=== PATIENT | male | born 1945 ===

== ENCOUNTER 2023-06-05 15:11 | Emergency (ER) | payer MEDICARE, BC, OTHER, SELFPAY ==
[2023-06-05 15:19] VITALS: BP 155/73
--- NOTE | 2023-06-05 17:43 | ED.GENMED ---
History of Present Illness
General
Chief Complaint: Visual Problem
Source: patient, spouse and physician (Records from his portrait painter office Dr. Medrano)
Exam Limitations: none
Time Seen by Provider: 06/05/23 17:41
Nursing documentation reviewed up to this point in time: agreed with
Travel History
Have you had any contact with someone who has COVID-19?: No
Do you have any symptoms of coronavirus? Fever > 100 degrees, chills, cough, shortness of breath, sore throat, loss of taste or smell, muscle aches, or headache?: No
History of Present Illness
History of Present Illness:
77-year-old male with history of HTN, CKD 2, diet-controlled diabetes, macular degeneration, dry eyes, wears glasses, left cataract surgery, right cataract extraction, laser capsulotomy of lens states for the past month he has been seeing binocular
vertical diplopia intermittently when looking afar for the past month. There has been no monocular diplopia. Denies recent trauma, it occurs when watching TV and reading subtitles, reading signs on the side of the road while driving. He has been
stable for the past month. There has been no facial droopiness or weakness.
He went to portrait painter Dr. Medrano today and referred here for evaluation of his binocular vertical diplopia. Told he needs an MRI.
Patient denies eye pain, fever, headache or photophobia.
Past History
Past History
ED Past Medical History: HTN
ED Past Surgical History: Orthopedic (R knee torn meniscus), Tonsilectomy (adenoidectomy) and Other (R & L cataract surgery, R inguinal hernia )
Social History
Tobacco: Smoker
Alcohol: Occasional
Personal:
Living: with family
Employment: Retired
Review of Systems
Review of Systems
Allergies reviewed?: Yes
All Other Systems: ROS reviewed and negative except as documented in HPI and ROS
Constitutional: Denies fever
Respiratory: Denies trouble breathing
Cardiac: Denies chest pain
ABD/GI: Denies abdominal pain
Skin: Reports no symptoms
Neurological: Reports other (Binocular vertical diplopia); Denies dizzy, headache, weakness or numbness
Phy Exam
Physical Exam
Physical Exam:
GENERAL: No acute distress. A&Ox3.
CONSTITUTIONAL: Afebrile.
Head: No scalp/temporal tenderness
EYES: PERRL, conjunctivae normal, EOMs intact. (see eye exam scanned into chart from portrait painter)
Neck: Supple
ENMT: moist mucus membranes, Pharynx nl, TMs normal
RESPIRATORY: Regular respirations, nonlabored, lungs clear.
CARDIOVASCULAR: Regular rate and rhythm, no murmurs, no rubs.
GI: Soft, nontender, normal BS
MUSCULOSKELETAL: Moves with ease. Well perfused.
SKIN: Warm, dry, pink
PSYCH: Normal mood and affect. Well kept, interactive and appropriate
NEUROLOGIC: Awake, alert and oriented. No focal neurological deficits
Course
Orders/Labs/Results
Orders:
Orders
06/05/23 17:59
CT Head W/o Iv Contrast Urgent
Comment:
Reason For Exam: binocular vertical diplopia
06/05/23 18:18
CRP [C-Reactive Protein] Urgent
Complete Blood Count/With Diff Urgent
Comprehensive Metabolic Panel Urgent
Sed Rate [Erythrocyte Sed Rate] Urgent
TSH Reflex To Free T4 Urgent
Abnormal Lab Results
06/05/23
18:18
RDW 14.8 H %
(11.5-14.5)
Chloride 108 H mmol/L
(98-107)
BUN 27 H mg/dl
(9-20)
Creatinine 1.4 H mg/dL
(0.7-1.3)
Glucose 109 H mg/dl
(70-99)
06/05/23 18:18
06/05/23 18:18
Vital Signs
Initial and Last Documented VS:
Initial Vital Signs
Temp Pulse Resp BP Pulse Ox
98.4 F 54 16 155/73 98
06/05/23 15:19 06/05/23 15:19 06/05/23 15:19 06/05/23 15:19 06/05/23 15:19
Last Documented Vital Signs
Temp Pulse Resp BP Pulse Ox
98.4 F 54 16 155/73 98
06/05/23 15:19 06/05/23 15:19 06/05/23 15:19 06/05/23 15:19 06/05/23 15:19
MDM/Problems Addressed
Differential Diagnosis Includes:
Extraocular muscle, misalignment, myasthenia gravis, temporal arteritis, central nerve palsy, CVA
MDM/Problems Addressed:
77-year-old male with history of HTN, CKD 2, diet-controlled diabetes, macular degeneration, dry eyes, wears glasses, left cataract surgery, right cataract extraction, laser capsulotomy of lens states for the past month he has been seeing binocular
vertical diplopia intermittently when looking afar for the past month. There has been no monocular diplopia. Denies recent trauma, it occurs when watching TV and reading subtitles, reading signs on the side of the road while driving. He has been
stable for the past month. There has been no facial droopiness or weakness.
He went to portrait painter Dr. Medrano today and referred here for evaluation of his binocular vertical diplopia. Told he needs an MRI.
Patient denies eye pain, fever, headache or photophobia.
NAD 6:44 PM
If today's workup is neg, Dr. Medrano, Numerologist will see pt in 2-3 weeks for follow up
6:44 PM
CBC normal
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
ESR within normal limits so history of this is usually the right
CRP WNL
Head CT with no acute findings.
Case discussed with Dr. Medrano who agrees her exam was consistent with lack of eye movement coordination causing lack of fusion of images, thus the binocular vertical diplopia.
Pt stable for discharge
*Critical Care Note
Total Time (30-74mins, 75-104mins- exclusive of procedures): Not Applicable
ED Attending Note
-
Portions of this chart may have been created with voice recognition software.� Occasional wrong word or��sound alike� substitutions may have occurred due to the inherent limitations of voice recognition software.
Discharge Plan
Departure
Patient Disposition: Home (Routine Discharge)
Date of Disposition: 06/05/23
Time of Disposition: 19:12
Patient with high blood pressure during this ER visit?: No
Condition: Good
Discharge Problem:
Binocular vision disorder with diplopia
Instructions: Double Vision (DC)
Prescriptions:
No Action
cyanocobalamin (vitamin B-12) 1,000 mcg Tablet
1,000 mcg PO DAILY
Red Eye 0.05 % Drops
1 drp BOTH EYES DAILYPRN PRN (Reason: eye irritation)
hydralazine 25 mg Tablet
25 mg PO BID
chlorthalidone 25 mg Tablet
12.5 mg PO MOWEFR@0800
aspirin 81 mg Tablet,Delayed Release (Dr/Ec)
81 mg PO Q48H@2200
acetaminophen [Tylenol Extra Strength] 500 mg Tablet
1,500 mg PO DAILYPRN PRN (Reason: back pain)
amlodipine 10 mg Tablet
10 mg PO DAILY
finasteride 5 mg Tablet
5 mg PO DAILY
rosuvastatin 20 mg Tablet
20 mg PO DAILY
omega-3 acid ethyl esters 1 gram Capsule
1 cap PO BID
fenofibrate 160 mg Tablet
160 mg PO DAILY
nebivolol 10 mg Tablet
10 mg PO DAILY
coQ10 (ubiquinol) 200 mg Capsule
200 mg PO DAILY
Men's 50 Plus Multivitamin 400-20-370 mcg Tablet
1 tab PO DAILY
PreserVision AREDS-2 250-90-40-1 mg Capsule
1 cap PO BID
Referrals:
Mitchell Guzman [Other] - Keep scheduled appt
NONE,* [Family Provider] -
Activity Restrictions/Additional Instructions:
As we discussed, nothing worrisome in your workup here today. Keep your follow-up appointment with Dr. Medrano in 2 to 3 weeks.
Interventions
Interventions:
*Risk Screen - Suicide Last Done: 06/05/23 15:17
*General Assessment Last Done: 06/05/23 15:17
*Neglect/Abuse Screening Last Done: 06/05/23 15:17
ED- Fall Risk Assessment Last Done: 06/05/23 19:20
*ED COVID-19 Vaccine History Last Done: 06/05/23 19:21
*Nursing Disposition Last Done: 06/05/23 19:20
ED- Neurological Assessment Last Done: 06/05/23 17:59
ED-EENT Assessment Last Done: 06/05/23 17:59
Discharge Date and Time
Discharge Date/Time: 06/05/23 19:21
Print Language: JAPANESE
[2023-06-05 18:30] LABS: % Basophils 0.5 % (0-2); % Eosinophils 0.9 % (0-6); % Immature Granulocytes 0.5 % (0-0.5); % Lymphocytes 23.8 % (20.5-51.1); % Monocytes 7.1 % (1.7-9.3); % Neutrophils 67.2 % (42.2-75.2); Absolute Eosinophils 0.1 10^3/uL (0-0.7); Absolute Monocytes 0.6 10^3/uL (0.1-0.6); Absolute Neutrophils 5.7 10^3/uL (1.4-6.5); Hematocrit 48.5 % (39.0-52.0); Hemoglobin 16.1 g/dL (13.0-18.0); Mean Corp Hgb Conc. 33.2 g/dL (33.0-37.0); Mean Corpuscular Hgb 28.6 pg (27.0-31.0); Mean Corpuscular Volume 86.1 fL (80.0-94.0); Mean Platelet Volume 9.6 fL (7.4-10.4); Nucleated Red Blood Cells % 0 % (-); Platelet Count 197 10^3/uL (130-400); Red Blood Cell Count 5.63 10^6/uL (4.70-6.10); Red Cell Dist. Width 14.8 % (11.5-14.5); White Blood Cell Count 8.4 10^3/uL (4.8-10.8)
[2023-06-05 18:39] LABS: ALT (SGPT) 23 U/L (0-50); AST (SGOT) 35 U/L (17-59); Albumin 4.7 g/dl (3.5-5.0); Alkaline Phosphatase 70 U/L (38-126); Blood Urea Nitrogen 27 mg/dl (9-20); Carbon Dioxide 27 mmol/L (22-30); Chloride 108 mmol/L (98-107); Glucose 109 mg/dl (70-99); Potassium 4.7 mmol/L (3.5-5.1); Sodium 140 mmol/L (135-145); Total Bilirubin 0.8 mg/dl (0.2-1.3); Total Protein 7.5 g/dl (6.3-8.2); eGFR 51.77
[2023-06-05 18:40] LABS: Erythrocyte Sed Rate 4 mm/hour (0-20)
[2023-06-05 18:44] LABS: C-Reactive Protein < 5.00 mg/L (0.0-10.00)
[2023-06-05 19:14] LABS: TSH Reflex To Free T4 1.72 uIU/ml (0.47-4.68)
== END 2023-06-05 19:21 | disposition home or self-care (01) ==
LOC: EMR 15:11
PROVIDERS: Registered Nurse; EMERGENCY PHYSICIAN Emergency Medicine
DX: H53.2 Diplopia (principal); H53.8 Other visual disturbances; I12.9 Hypertensive chronic kidney disease with stage 1 through stage 4 chronic kidney disease, or unspecified chronic kidney disease; N18.2 Chronic kidney disease, stage 2 (mild); E11.22 Type 2 diabetes mellitus with diabetic chronic kidney disease; H35.30 Unspecified macular degeneration; F17.200 Nicotine dependence, unspecified, uncomplicated; Z79.82 Long term (current) use of aspirin
CPT/HCPCS: 99284; 70450; 80053; 84443; 85025; 85652; 86140